=== PATIENT | male | born 1970 | race Caucasian/White ===

== ENCOUNTER 2019-12-19 05:12 | Day surgery (SDC) | payer BC ==
[2019-12-18 15:18] VITALS: BMI 25.9
[2019-12-19] MEDS ORDERED: PROPOFOL 20 ML ONE ×2 (13:27)
[2019-12-19] MEDS ORDERED: SUCCINYLCHOLINE CHLORIDE 200 MG/10 ML SYRINGE ONE (13:28)
[2019-12-19] MEDS ORDERED: MIDAZOLAM HCL 2 MG/2 ML SINGLE DOSE VIAL ONE (13:29)
[2019-12-19] MEDS ORDERED: DEXTROSE 5%-0.45% SALINE 1,000 ML IV SCH (14:00)
[2019-12-19] MEDS ORDERED: IBUPROFEN 800 MG/8 ML IJ IVPB SCH (14:00)
[2019-12-19] MEDS ORDERED: ACETAMINOPHEN 1000 MG/100 ML VIAL (NON FORMULARY) IVPB ONE (14:01)
--- NOTE | 2019-12-19 14:03 | HP ---
History & Physical Update - History History: No Change - Physical Physical: No Change - Assessment Assessment: No Change - Plan Plan: No Change (12/17/19)
[2019-12-19] MEDS ORDERED: CLINDAMYCIN 600 MG PREMIX BAG IVPB ONE (14:10)
[2019-12-19] MEDS ORDERED: DEXAMETHASONE SOD PHOSPHATE 4 MG/1 ML VIAL ONE (15:07)
[2019-12-19] MEDS ORDERED: LIDOCAINE HCL/PF 2% SDV 5ML VIAL ONE (15:07)
[2019-12-19] MEDS ORDERED: CLINDAMYCIN PHOSPHATE 600 MG/4 ML VIAL ONE (15:07)
[2019-12-19] MEDS ORDERED: ACETAMINOPHEN INJECTION 100 ML IVPB ONE (15:32)
[2019-12-19] MEDS ORDERED: ONDANSETRON 4 MG/2 ML VIAL IVPUSH PRN (15:34)
[2019-12-19] MEDS ORDERED: oxyCODONE HCL 5 MG TABLET PO PRN (15:34)
[2019-12-19] MEDS ORDERED: LACTATED RINGERS SOLUTION 1,000 ML IV SCH (15:45)
--- NOTE | 2019-12-19 16:22 | OP ---
DATE OF OPERATION: 12/19/2019 PREOPERATIVE DIAGNOSIS: Urinary retention with benign prostatic hypertrophy. POSTOPERATIVE DIAGNOSIS: Urinary retention with benign prostatic hypertrophy. PROCEDURE: GreenLight laser ablation of prostate and cystoscopy. ANESTHESIA: General. FINDINGS: Enlarged obstructed prostate tissue. Bladder appeared to be normal. SPECIMEN: No specimen. ESTIMATED BLOOD LOSS: 25 mL. GREENLIGHT LASER WATTAGE: Between 60 and 180. TOTAL ENERGY USED: Approximately 140,000 kilojoules. DRAINS: A 20-[place] catheter. PREOPERATIVE INDICATIONS: The patient is a 49-year-old male who presented in acute urinary retention. He was started on medications, was given a trial of void, and ultimately failed trial of void. He has a very enlarged prostate and is offered a GreenLight laser ablation. Risks, benefits, and alternatives were discussed with him and his . OPERATION: The patient was brought to the OR, placed on the table in the supine position, given general anesthesia and IV antibiotics, and placed in the modified lithotomy position. The groin was prepped and draped sterilely. Timeout was performed. Cystoscopy was performed. The distal urethra appeared to be normal. The sphincter was intact. The prostate was very enlarged with a blocked cardinal view from the veru. Large lateral lobes and a high medium bar were seen. The bladder itself was largely unremarkable. There were some mild trabeculations throughout. Both UOs were seen. No tumors or stones were seen. Using the GreenLight laser initially set at 60 maciel, the area of prostate tissue at the bladder neck was vaporized with care not to injury the bladder itself, and then the tissue around the verumontanum was also vaporized with care not to touch the sphincter. After this was done satisfactorily, the wattage was increased to 150-180. The mid-portion of the prostate was vaporized. This was done until a good open channel was visualized. No bleeding was seen. The UOs were uninjured, and the sphincter itself as well as uninjured. A 20-[place] Sanon catheter was left in place, and the patient was woken up. Also, no injury to the bladder was seen. JANIS OSORIO M.D. [id number]
[2019-12-19 17:47] VITALS: TEMP 97.4
[2019-12-19 18:52] VITALS: BP 146/67; PULSE 80
== END 2019-12-19 18:53 | disposition home or self-care (01) ==
LOC: JASU-SURG 05:12
PROVIDERS: ATTEND Urology
PROC: 0VT08ZZ Resection of Prostate, Via Natural or Artificial Opening Endoscopic (ICD-10-PCS; principal; 2019-12-19 14:30)
DX: N40.1 Benign prostatic hyperplasia with lower urinary tract symptoms (principal); R33.9 Retention of urine, unspecified
CPT/HCPCS: 94760; J0131